=== PATIENT | female | born 1980 | race Caucasian/White ===

== ENCOUNTER 2017-06-18 23:58 | Emergency (ER) | payer OTHER ==
[~2017-06-18] VITALS: Ht 160 cm; Wt 71.7 kg
[~2017-06-18 23:58] MED LIST: AZIT250T PO
[2017-06-19] MEDS ORDERED: CEPH-572 PO (00:25)
[2017-06-19] MEDS ORDERED: SULF1TAB49 PO (00:25)
[2017-06-19 00:36] VITALS: BP 115/72
== END 2017-06-19 00:39 | disposition home or self-care (01) ==
LOC: ER 23:59
DX: L03.116 Cellulitis of left lower limb (principal); Z79.899 Other long term (current) drug therapy
CPT/HCPCS: 99283

== ENCOUNTER 2023-10-21 10:46 | Emergency (ER) | payer MEDICAID ==
[~2023-10-21] VITALS: Ht 160 cm; Wt 67.8 kg
[~2023-10-21 10:46] MED LIST changes: -AZIT250T PO; +NEOM10SO7 EACH EAR; +NICO-631 TD
[2023-10-21 11:02] VITALS: BP 145/84; PULSE 97; RESP 16; TEMP 97.8; O2SAT 98
== END 2023-10-21 16:51 | disposition left against medical advice (07) ==
LOC: ER 10:46
DX: R21 Rash and other nonspecific skin eruption (principal); Z53.21 Procedure and treatment not carried out due to patient leaving prior to being seen by health care provider

== ENCOUNTER 2024-05-04 10:21 | Emergency (ER) | payer MEDICAID ==
[~2024-05-04] VITALS: Ht 160 cm; Wt 73.3 kg
[2024-05-04 11:13] VITALS: TEMP 97.3
[2024-05-04 11:30] LABS: BASOPHILS % (AUTO) 0.5 % (0-1); EOSINOPHILS # (AUTO) 0.1 X10'3 (0-0.9); EOSINOPHILS % (AUTO) 0.6 % (0-6); HEMATOCRIT 43.1 % (35.0-45.0); HEMOGLOBIN 14.8 g/dl (12.0-16.0); LYMPHOCYTES # (AUTO) 2.7 X10'3 (1.1-4.8); LYMPHOCYTES % (AUTO) 27.3 % (21-51); MEAN CORPUSCULAR HEMOGLOBIN 33.9 PG (27.0-31.0); MEAN CORPUSCULAR HGB CONC 34.3 g/dL (33.0-36.5); MEAN CORPUSCULAR VOLUME 98.7 FL (78-98); MEAN PLATELET VOLUME 7.8 FL (7.4-10.4); MONOCYTES # (AUTO) 0.8 X10'3 (0-0.9); MONOCYTES % (AUTO) 8.5 % (2-12); NEUTROPHILS # (AUTO) 6.2 X10'3 (1.8-7.7); NEUTROPHILS % (AUTO) 63.1 % (42-75); PLATELET COUNT 270 X10'3 (140-440); RED BLOOD COUNT 4.36 X10'6 (4.20-5.60); RED CELL DISTRIBUTION WIDTH 13.6 % (11.5-14.5); WHITE BLOOD COUNT 9.7 X10'3 (4.5-11.0)
[2024-05-04 11:44] LABS: ALANINE AMINOTRANSFERASE 20 U/L (12-78); ALBUMIN 3.5 G/DL (3.4-5.0); ALBUMIN/GLOBULIN RATIO 0.9 (1.1-1.5); ALKALINE PHOSPHATASE 52 IU/L (46-116); ANION GAP 9 (8-16); ASPARTATE AMINO TRANSFERASE 21 U/L (10-37); BILIRUBIN,TOTAL 0.2 MG/DL (0.1-1.0); BLOOD UREA NITROGEN 14 MG/DL (7-18); BUN/CREATININE RATIO 20.3 (10.0-20.0); CALCIUM 8.9 MG/DL (8.5-10.1); CHLORIDE 104 MMOL/L (99-107); CREATININE 0.69 MG/DL (0.40-0.90); GLUCOSE 95 MG/DL (70-104); POTASSIUM 3.9 MMOL/L (3.5-5.1); SODIUM 138 MMOL/L (135-145); TOTAL CARBON DIOXIDE 25.5 MMOL/L (24-32); TOTAL PROTEIN 7.3 G/DL (6.4-8.2); eCRCL 88 ML/MIN; eGFR > 90 ML/MIN
[2024-05-04 11:52] LABS: PRO BRAIN NATRIURETIC PEPTIDE < 30 PG/ML (0-125)
[2024-05-04 13:38] LABS: D-DIMER 0.44 MG/L FEU (0-0.50)
[2024-05-04 14:21] VITALS: BP 126/74; PULSE 78; RESP 18; O2SAT 98
== END 2024-05-04 14:26 | disposition home or self-care (01) ==
LOC: ER 10:22
DX: R00.2 Palpitations (principal); R06.02 Shortness of breath; Z98.51 Tubal ligation status
CPT/HCPCS: 36415; 71045; 80053; 83880; 84443; 84484; 85025; 85379; 93005; 99285